=== PATIENT | male | born 1990 | race African-American/Black ===

== ENCOUNTER 2016-10-25 16:35 | Emergency (ER) | payer SELFPAY ==
[~2016-10-25] VITALS: Ht 175.3 cm; Wt 63.5 kg
--- NOTE | 2016-10-25 17:03 | PHYS DOC ---
General Chief Complaint: SEXUALLY TRANSMITTED DISEASE Stated Complaint: STD CHECK Time Seen by MD: 16:57 Source: patient Exam Limitations: no limitations Problems: History of Present Illness Initial Comments Patient is a 26-year-old male who comes to the ED complaining of dysuria and discharge. Patient states that his last unprotected intercourse was over a month ago. He states that for the past several weeks he's had intermittent urethral irritation and itching initially. The past few days he's had dysuria and what he describes as copious amounts of whitish yellow discharge both in his undergarments and escaping his urethral meatus with urination. Patient has history of gonorrhea in the past symptoms are similar. No night sweats or unexplained weight loss. Timing/Duration: intermittent, other Severity/Quality: moderate, burning Location: urethral Activities at Onset: other Prior Genitourinary Problems: similar symptoms Sexual Winter History: less than 2 months ago, multiple partners Modifying Factors: worse with palpation, worse with urinating Associated Symptoms: dysuria, urinary frequency Allergies: Coded Allergies: No Known Drug Allergies (Unverified , 10/25/16) Past Medical History Medical History: no pertinent history (gonorrhea at 18 y/o) Surgical History: noncontributory Social History Smoker: non-smoker Alcohol: occasionally Drugs: marijuana Review of Systems Constitutional: denies chills, denies diaphoresis, denies fever, denies malaise Respiratory: denies cough, denies shortness of breath Cardiovascular: denies chest pain, denies palpitations Gastrointestinal: denies diarrhea, denies nausea, denies vomiting Genitourinary: see HPI Musculoskeletal: denies back pain, denies joint swelling, denies neck pain Psychiatric/Neurological: denies headache, denies numbness, denies paresthesia Physical Exam General Appearance: WD/WN, no apparent distress Neck: non-tender, supple Cardiovascular/Respiratory: normal peripheral pulses, no respiratory distress Gastrointestinal: non tender, soft Male Genitals: normal genitalia, urethral discharge Back: no CVA tenderness, no vertebral tenderness Extremities: non-tender, normal inspection Neurologic/Psychiatric: alert, normal mood/affect, oriented x 3 Skin: normal color, warm/dry Orders, Labs, Meds Patient received Rocephin 1 g IM as well as Zithromax 1 g by mouth in the ED. Gonorrhea and chlamydia swabs were obtained patient was advised to follow-up with his doctor for recheck and HIV testing. Patient expressed agreement and understanding of the treatment plan. Departure Time of Disposition: 17:12 Disposition: 01 HOME, SELF-CARE Diagnosis: ureteritis NOS Condition: GOOD Patient Instructions: Urethritis, Adult Additional Instructions: Barrier protection with sexual activity to prevent infection. You received Rocephin and Zithromax in the emergency Department today which should treat any gonorrhea or Chlamydia infection present. Prescription: Pyridium take as directed Follow-up with a doctor next week for recheck and today's test results. Would also benefit from outpatient HIV screen. Return to ED with new or changing symptoms. SHERMAN GRACE DO Oct 25, 2016 17:03
[2016-10-25] MEDS ORDERED: cefTRIAXone SODIUM 1 GM VIAL IV ONE (17:49)
[2016-10-25] MEDS ORDERED: cefTRIAXone IM 1 GM VIAL IM ONE (18:00)
[2016-10-25] MEDS ORDERED: AZITHROMYCIN 1 GM PACKET PO ONE (18:00)
[2016-10-25 18:06] VITALS: BP 116/69
== END 2016-10-25 18:06 | disposition home or self-care (01) ==
LOC: ER 16:35
DX: N28.89 Other specified disorders of kidney and ureter (principal); F12.10 Cannabis abuse, uncomplicated
CPT/HCPCS: 99284; J0456; 36415

== ENCOUNTER 2016-12-23 00:26 | Emergency (ER) | payer SELFPAY ==
[~2016-12-23] VITALS: Ht 175.3 cm; Wt 63.5 kg
[2016-12-23 00:59] VITALS: BP 169/100
[2016-12-23] MEDS ORDERED: ACETAMINOPHEN 325 MG TABLET PO ONE ×2 (02:45→02:49)
--- NOTE | 2016-12-23 03:35 | PHYS DOC ---
Past History Past Medical History: No Pertinent History, Other Past Surgical History: No Surgical History Alcohol Use: Occasionally Drug Use: Marijuana Adult General Chief Complaint Chief Complaint: DEPRESSION HPI HPI 26-year-old male presenting to the emergency department with worsening depression denies suicidal ideation. He also endorses drug use. He also reports punching a wall with his hands and having small abrasions on his hands. He has pain in his hand that is mild nonradiating intermittent and without alleviating factors. He denies any other injuries. He has not tried to hurt himself in the past. He has never been hospitalized for suicidal ideation. Review of systems is negative for chest pain abdominal pain shortness of breath fevers chills. All other review of systems is negative unless otherwise noted in history of present illness. ED course: 26-year-old male presenting with depression. He denies suicidal ideation. X-rays of his hands were obtained given his punching bray which were unremarkable for acute fractures. No lacerations of hands on inspection only abrasions. The patient was then discharged home. Telemetry psychiatry utilized recommended outpatient care which I believe is appropriate. Review of Systems Review of Systems SEE ABOVE Current Medications Current Medications Current Medications Medications (Trade) Dose Ordered Sig/Alicia Start Time Stop Time Status Last Admin Dose Admin Acetaminophen (Tylenol) 650 mg 1X ONCE 12/23/16 02:45 12/23/16 02:46 UNV 12/23/16 02:45 650 MG Allergies Allergies Allergies Coded Allergies Type Severity Reaction Last Updated Verified No Known Drug Allergies 10/25/16 No Physical Exam Physical Exam Constitutional: Well developed, well nourished, no acute distress, non-toxic appearance. [] HENT: Normocephalic, atraumatic, bilateral external ears normal, oropharynx moist, no oral exudates, nose normal. [] Eyes: PERRLA, EOMI, conjunctiva normal, no discharge. [] Neck: Normal range of motion, no tenderness, supple, no stridor. [] Cardiovascular:Heart rate regular rhythm, no murmur [] Lungs & Thorax: Bilateral breath sounds clear to auscultation [] Abdomen: Bowel sounds normal, soft, no tenderness, no masses, no pulsatile masses. [] Skin: Warm, dry, no erythema, no rash. [] Back: No tenderness, no CVA tenderness. [] Extremities: No tenderness, no cyanosis, no clubbing, ROM intact, no edema. [] Abrasions to his hands without laceration. Otherwise neurovascularly intact 2 second cap refill and unremarkable. Neurologic: Alert and oriented X 3, normal motor function, normal sensory function, no focal deficits noted. [] Psychologic: Psych: Appearance: nl M/S: Alert and oriented Mood/Affect: Normal Speech: Normal Insight: Normal Hallucinations: None SI or HI: None Current Patient Data Vital Signs Vital Signs Date Time Temp Pulse Resp B/P (MAP) Pulse Ox O2 Delivery O2 Flow Rate FiO2 12/23/16 00:59 98.3 66 20 98 EKG EKG [] Radiology/Procedures Radiology/Procedures [] Course & Med Decision Making Course & Med Decision Making Pertinent Labs and Imaging studies reviewed. (See chart for details) [] Dragon Disclaimer Dragon Disclaimer This chart was dictated in whole or in part using Voice Recognition software in a busy, high-work load, and often noisy Emergency Department environment. It may contain unintended and wholly unrecognized errors or omissions. Departure Departure: Impression: Primary Impression: Hand injury Additional Impression: Depression Disposition: HOME, SELF-CARE Condition: STABLE Referrals: [facility] (PCP) Patient Instructions: Depression, Adult, Hand Contusion, Hand Injuries Additional Instructions: Thank you for allowing us to participate in your care today. Followup with your primary care physician in 3 days if your symptoms do not improve. Call your Primary Doctor tomorrow and inform them of your visit today. If you do not have a primary care provider you can ask for a list of our primary care providers. Return to the emergency department you have any new or concerning findings. This should be evaluated by the primary care physician and any necessary consulting services for continued management within a few days after discharge. Return to emergency room if you have any new or concerning symptoms including but not limited to fever, chills, nausea, vomiting, intractable pain, any new rashes, chest pain, shortness of air, uncontrolled bleeding, difficulty breathing, and/or vision loss. Problem Qualifiers SAVANNA CALABRESE MD Dec 23, 2016 03:35
--- NOTE | 2016-12-23 08:17 | RAD ---
EXAM: Bilateral hands 3 views. HISTORY: Pain after injury. COMPARISON: None. FINDINGS: On the right, there is a chronic fracture of the 5th metacarpal. No acute fractures are seen. Joint spaces and alignment are maintained. On the left,, no acute fractures are identified. Joint spaces and alignment are maintained. IMPRESSION: 1. No acute fractures are identified.
== END 2016-12-23 03:27 | disposition home or self-care (01) ==
LOC: ER 00:26
DX: S60.512A Abrasion of left hand, initial encounter (principal); S60.511A Abrasion of right hand, initial encounter; F32.9 Major depressive disorder, single episode, unspecified; W22.01XA Walked into wall, initial encounter; Y93.89 Activity, other specified; Y99.8 Other external cause status; Y92.89 Other specified places as the place of occurrence of the external cause
CPT/HCPCS: 73130; 99284

== ENCOUNTER 2017-03-15 10:11 | Emergency (ER) | payer SELFPAY ==
[~2017-03-15] VITALS: Ht 185.4 cm; Wt 65.8 kg
--- NOTE | 2017-03-15 11:01 | ED.ADGEN ---
Past History Past Medical History: No Pertinent History, Other Past Surgical History: No Surgical History Alcohol Use: Occasionally Drug Use: Marijuana Social History Narrative: "used to smoke Marijuana, but cant right know cause of court" Adult General HPI HPI Patient is a 26-year-old male who presents for STD check. This morning his meatus was "closed shut". He's not been having dysuria or discharge. No lymphadenopathy. He was concerned about a possible STD. Currently is having no symptoms. Not sexually active. Review of Systems Review of Systems Constitutional: Denies fever or chills Eyes: Denies change in visual acuity, redness, or eye pain HENT: Denies nasal congestion or sore throat Respiratory: Denies cough or shortness of breath Cardiovascular: No additional information not addressed in HPI GI: Denies abdominal pain, nausea, vomiting, bloody stools or diarrhea : Denies dysuria or hematuria Musculoskeletal: Denies back pain or joint pain All other systems were reviewed and found to be within normal limits, except as documented in this note. Allergies Allergies Allergies Coded Allergies Type Severity Reaction Last Updated Verified No Known Drug Allergies 10/25/16 No Physical Exam Physical Exam Constitutional: Well developed, well nourished, no acute distress, non-toxic appearance. HENT: Normocephalic, atraumatic, bilateral external ears normal, oropharynx moist, no oral exudates, nose normal. Eyes: PERRLA, EOMI, conjunctiva normal, no discharge. Neck: Normal range of motion, no tenderness, supple, no stridor. Cardiovascular:Heart rate regular rhythm, no murmur Lungs & Thorax: Bilateral breath sounds clear to auscultation Abdomen: Bowel sounds normal, soft, no tenderness, no masses, no pulsatile masses. NORMAL genital examiniation with no discharge or lymphadenopathy. Skin: Warm, dry, no erythema, no rash. Back: No tenderness, no CVA tenderness. Extremities: No tenderness, no cyanosis, no clubbing, ROM intact, no edema. Neurologic: Alert and oriented X 3, normal motor function, normal sensory function, no focal deficits noted. Psychologic: Affect normal, judgement normal, mood normal. Current Patient Data Vital Signs Vital Signs Date Time Temp Pulse Resp B/P (MAP) Pulse Ox O2 Delivery O2 Flow Rate FiO2 03/15/17 10:26 98.3 67 16 98 Room Air Lab Results GC/Chlam Urine test sent. Results in 3-5 days. EKG EKG [] Radiology/Procedures Radiology/Procedures [] Course & Med Decision Making Course & Med Decision Making Pertinent Labs and Imaging studies reviewed. (See chart for details) Patient does not wish emperic treatment. We'll ask him to call back in 3-5 days for results. Final Impression Final Impression STD evaluation Problems: Dragon Disclaimer Dragon Disclaimer This electronic medical record was generated, in whole or in part, using a voice recognition dictation system. DEMI SANTOS MD Mar 15, 2017 11:00
== END 2017-03-15 11:14 | disposition home or self-care (01) ==
LOC: ER 10:11
DX: Z11.3 Encounter for screening for infections with a predominantly sexual mode of transmission (principal); F12.10 Cannabis abuse, uncomplicated
CPT/HCPCS: 36415; 87491; 87591; 99284

== ENCOUNTER 2017-06-20 14:45 | Emergency (ER) | payer SELFPAY ==
[~2017-06-20] VITALS: Ht 185.4 cm; Wt 63.5 kg
--- NOTE | 2017-06-20 15:16 | PHYS DOC ---
Past History Past Medical History: No Pertinent History Past Surgical History: No Surgical History Smoking: Cigarettes Alcohol Use: None Drug Use: None Adult General Chief Complaint Chief Complaint: HAND PROBLEM HPI HPI 27-year-old right-handed female patient states he punched a wall 2 days ago and injured his right fifth finger that not getting better with taking over-the- counter pain medication. Patient denies other injuries and focal neurodeficit. Review of Systems Review of Systems Constitutional: Denies fever or chills [] Eyes: Denies change in visual acuity, redness, or eye pain [] HENT: Denies nasal congestion or sore throat [] Respiratory: Denies cough or shortness of breath [] Cardiovascular: No additional information not addressed in HPI [] GI: Denies abdominal pain, nausea, vomiting, bloody stools or diarrhea [] : Denies dysuria or hematuria [] Musculoskeletal: Denies back pain, reports joint pain [] Integument: Denies rash or skin lesions [] Neurologic: Denies headache, focal weakness or sensory changes [] Endocrine: Denies polyuria or polydipsia [] All other systems were reviewed and found to be within normal limits, except as documented in this note. Allergies Allergies Allergies Coded Allergies Type Severity Reaction Last Updated Verified No Known Drug Allergies 10/25/16 No Physical Exam Physical Exam Constitutional: Well developed, well nourished, no acute distress, non-toxic appearance. [] HENT: Normocephalic, atraumatic Eyes: PERRLA, EOMI, conjunctiva normal, no discharge. [] Neck: Normal range of motion, no tenderness, supple, no stridor. [] Cardiovascular:Heart rate regular rhythm, no murmur [] Lungs & Thorax: Bilateral breath sounds clear to auscultation [] Extremities: Right fifth finger with edema and tenderness of distal phalanx without deformity] Neurologic: Alert and oriented X 3, normal motor function, normal sensory function, no focal deficits noted. [] Psychologic: Affect normal, judgement normal, mood normal. [] Current Patient Data Vital Signs Vital Signs Date Time Temp Pulse Resp B/P (MAP) Pulse Ox O2 Delivery O2 Flow Rate FiO2 06/20/17 15:02 97.8 88 18 99 Room Air EKG EKG [] Radiology/Procedures Radiology/Procedures [] [place] [id number] IMAGING REPORT Signed PATIENT: ASH ESPOSITO ACCOUNT: [id number] : 1990 LOCATION: ER AGE: 27 SEX: M EXAM STATUS: REG ER ORD. PHYSICIAN: ALFONZO DESAI MD REASON: right fifth finger injury PROCEDURE: FINGER(S) RIGHT Right finger radiograph 06/20/2017 Clinical indication: Right 5th finger trauma and pain. COMPARISON: None. FINDINGS: No evidence of acute fracture or traumatic malalignment of the 5th digit. There is a probable old healed fracture deformity of the 5th metacarpal neck. IMPRESSION: No acute osseous abnormality of the 5th digit. Electronically signed by: Ava Oliver MD (06/20/2017 3:31 PM) [id number] DICTATED AND SIGNED BY: AVA OLIVER MD DATE: 06/20/17 1530 CC: ALFONZO DESAI MD; PCP,NO Course & Med Decision Making Course & Med Decision Making Pertinent Imaging studies reviewed. (See chart for details) Evaluation of patient in ER showed 27-year-old female patient with injury to right fifth finger with unremarkable x-ray. Plan to apply aluminium splint and give prescription of ibuprofen. discharge: I've spoken with the patient and/or caregivers. I've explained the patient's condition, diagnosis and treatment plan based on information available to me at this time. I've answered the patient's and/or caregivers questions and addressed any concerns. The patient and/or caregivers have a good understanding the patient's diagnosis, condition and treatment plan as can be expected at this point. Vital signs have been stabilized. The patient's condition is stable for discharge from the emergency department. The patient will pursue further outpatient evaluation with her primary care provider or other designated consulting physician as outlined in the discharge instructions. Patient and/or caregivers are agreeable to this plan of care and follow-up instructions have been explained in detail. The patient and/or caregivers have received these instructions in written format and expressed understanding of these discharge instructions. The patient and her caregivers are aware that if any significant change in condition or worsening of symptoms should prompt him to immediately return to this of the closest emergency department. If an emergent department is not readily available I would encourage him to call 911. [] Tarun Disclaimer Dragon Disclaimer This electronic medical record was generated, in whole or in part, using a voice recognition dictation system. Departure Departure: Impression: Primary Impression: Finger sprain Disposition: HOME, SELF-CARE (At 1545) Condition: STABLE Referrals: PCP,NO (PCP) Patient Instructions: Finger Sprain Additional Instructions: Apply ice on the affected area Follow-up with your primary care physician in 3-5 days Return to ER if not getting better Scripts Ibuprofen (IBUPROFEN) 800 Mg Tablet 1 TAB PO TID, #20 TAB 1 Refill Prov: ALFONZO DESAI MD 06/20/17 ALFONZO DESAI MD Jun 20, 2017 15:16
--- NOTE | 2017-06-20 15:34 | RAD ---
Right finger radiograph 06/20/2017 Clinical indication: Right 5th finger trauma and pain. COMPARISON: None. FINDINGS: No evidence of acute fracture or traumatic malalignment of the 5th digit. There is a probable old healed fracture deformity of the 5th metacarpal neck. IMPRESSION: No acute osseous abnormality of the 5th digit. Electronically signed by: Jamie Sarah MD (06/20/2017 3:31 PM) [id number]
[2017-06-20] MEDS ORDERED: IBUP800T19 PO (15:46)
[2017-06-20 15:58] VITALS: BP 118/70
== END 2017-06-20 15:55 | disposition home or self-care (01) ==
LOC: ER 14:45
DX: S63.616A Unspecified sprain of right little finger, initial encounter (principal); F17.210 Nicotine dependence, cigarettes, uncomplicated; W22.01XA Walked into wall, initial encounter; Y93.89 Activity, other specified; Y99.8 Other external cause status; Y92.89 Other specified places as the place of occurrence of the external cause
CPT/HCPCS: 29130; 73140; 99284

== ENCOUNTER 2017-08-01 20:36 | Emergency (ER) | payer SELFPAY ==
[~2017-08-01] VITALS: Ht 185.4 cm; Wt 63.5 kg
[~2017-08-01 20:36] MED LIST: IBUP800T19 PO
--- NOTE | 2017-08-01 20:43 | ED.ADGEN ---
Past History Past Medical History: No Pertinent History Past Surgical History: No Surgical History Smoking: Cigarettes Alcohol Use: None Drug Use: None Adult General Chief Complaint Chief Complaint ".. I got the drip... I need check for all the STD's.. I ve had Gonorrhea before.. and Chlamydia.. " " Fuck the swab.. I ve had the fucking swab before... it fucking hurts.. I am not going to do no fucking swab.. somebody here just did a piss test.. I will come back another time..." HPI HPI Patient is a 27 year old male who presents with above hx and complaints penile discharge and dysuria. Pt. had multiple unprotected sexual partners. Prior confirmed test + for gonorrhea and chlamydia. No testing prior for Syphilis, Hepatitis or HIV. Pt. seen the swab...and said " Fuck this..".. " I will have to come back another time.. I am not going to do the swab up fucking penis again.. ".. Pt. encouraged to complete urine, and other testing. Pt. refused. Left ED. Pt . left prior further testing. Pt. advised would check on urine testing..but pt. refused to wait. Review of Systems Review of Systems Constitutional: Denies fever or chills [] Eyes: Denies change in visual acuity, redness, or eye pain [] HENT: Denies nasal congestion or sore throat [] Respiratory: Denies cough or shortness of breath [] Cardiovascular: No additional information not addressed in HPI [] GI: Denies abdominal pain, nausea, vomiting, bloody stools or diarrhea [] : Complaints of dysuria and hematuria [] Pt. complaints of penile discharge Musculoskeletal: Denies back pain or joint pain [] Integument: Denies rash or skin lesions [] Neurologic: Denies headache, focal weakness or sensory changes [] Endocrine: Denies polyuria or polydipsia [] All other systems were reviewed and found to be within normal limits, except as documented in this note. Family History Family History Non-contributory Current Medications Current Medications Home meds. Allergies Allergies Allergies Coded Allergies Type Severity Reaction Last Updated Verified No Known Drug Allergies 10/25/16 No Meds as directed. Physical Exam Physical Exam Constitutional: Well developed, well nourished, no acute distress, non-toxic appearance. [] HENT: Normocephalic, atraumatic, bilateral external ears normal, oropharynx moist, no oral exudates, nose normal. [] Eyes: PERRLA, EOMI, conjunctiva normal, no discharge. [] Neck: Normal range of motion, no tenderness, supple, no stridor. [] Cardiovascular:Heart rate regular rhythm, no murmur [] Lungs & Thorax: Bilateral breath sounds equal at apexes with scattered wheezes auscultation [] Abdomen: Bowel sounds normal, soft, no tenderness, no masses, no pulsatile masses. [] Circumcised male with penile discharge. Skin: Warm, dry, no erythema, no rash. [] Multiple Tattoos Back: No tenderness, no CVA tenderness. [] Extremities: No tenderness, no cyanosis, no clubbing, ROM intact, no edema. [] Neurologic: Alert and oriented X 3, normal motor function, normal sensory function, no focal deficits noted. [] Psychologic: Affect anxious. , judgement normal, mood normal. [] Current Patient Data Vital Signs Vital Signs Date Time Temp Pulse Resp B/P (MAP) Pulse Ox O2 Delivery O2 Flow Rate FiO2 08/01/17 20:45 97.6 76 18 96 Room Air EKG EKG [] Radiology/Procedures Radiology/Procedures [] Course & Med Decision Making Course & Med Decision Making Pertinent Labs and Imaging studies reviewed. (See chart for details). Pt. encourage to followup or go to health dept. Currently no urine collection specialized tubes for GC /Chlamydia in the ED . Pt. encourage to return if elects to have testing done. [] Final Impression Final Impression 1. Hx. of Dysuria 2. Hx. prior GC and Chlamydia 3. Penile discharge[] Problems: Dragon Disclaimer Dragon Disclaimer This electronic medical record was generated, in whole or in part, using a voice recognition dictation system. LACEY BUSTAMANTE MD August 01, 2017 20:43
[2017-08-01 20:45] VITALS: BP 118/70
== END 2017-08-01 21:05 | disposition home or self-care (01) ==
LOC: ER 20:36
DX: R36.9 Urethral discharge, unspecified (principal); R30.0 Dysuria; R31.9 Hematuria, unspecified; F17.210 Nicotine dependence, cigarettes, uncomplicated
CPT/HCPCS: 99281